=== PATIENT | female | born 1955 | race Caucasian/White ===

== ENCOUNTER → 2017-12-29 | Outpatient (CLI) | payer OTHER ==
[~2017-12-29] MED LIST: CONESTTC PV; HYDACE5 PO; Lisinopril2.5 MG PO; OXYACE5T; Valium5 MG PO
== END ==
LOC: PLD 13:52 → LAB SHORT 13:52
DX: D04.62 Carcinoma in situ of skin of left upper limb, including shoulder (principal); D17.23 Benign lipomatous neoplasm of skin and subcutaneous tissue of right leg
CPT/HCPCS: 88305

== ENCOUNTER → 2018-01-30 | Outpatient (CLI) | payer OTHER ==
[2018-01-30 22:03] LABS: Candida species (DNA Probe) Negative (NEGATIVE); G. vaginalis (DNA Probe) Positive (NEGATIVE); T. vaginalis (DNA Probe) Negative (NEGATIVE)
== END ==
LOC: LAB 10:34 → LAB SHORT 10:34
PROVIDERS: Nurse Practitioner
DX: R30.0 Dysuria (principal)
CPT/HCPCS: 87480; 87510; 87660

== ENCOUNTER → 2018-05-23 | Outpatient (CLI) | payer OTHER | END | disposition home or self-care (01) | LOC: LAB 17:52 → LAB SHORT 17:52 | DX: N76.0 Acute vaginitis (principal) | CPT/HCPCS: 87070; 87147; 87205 ==

== ENCOUNTER → 2019-10-09 | Outpatient (CLI) | payer OTHER | END | disposition home or self-care (01) | LOC: LAB SHORT 14:04 → LAB 14:04 | PROVIDERS: Hospitalist | DX: Z12.72 Encounter for screening for malignant neoplasm of vagina (principal); L29.8 Other pruritus | CPT/HCPCS: 87070; 87205; G0145 ==

== ENCOUNTER → 2019-11-01 | Outpatient (CLI) | payer OTHER | END | disposition home or self-care (01) | LOC: PLD 11:18 → LAB SHORT 11:18 | DX: D48.5 Neoplasm of uncertain behavior of skin (principal); C44.619 Basal cell carcinoma of skin of left upper limb, including shoulder; C44.519 Basal cell carcinoma of skin of other part of trunk | CPT/HCPCS: 88305 ==

== ENCOUNTER → 2020-02-05 | Outpatient (CLI) | payer OTHER | END | disposition home or self-care (01) | LOC: LAB SHORT 09:08 → PLD 09:08 | DX: C44.519 Basal cell carcinoma of skin of other part of trunk (principal) | CPT/HCPCS: 88305 ==

== ENCOUNTER → 2020-04-16 | Outpatient (CLI) | payer OTHER | END | disposition home or self-care (01) | LOC: LAB 12:07 → LAB SHORT 12:07 | DX: N95.2 Postmenopausal atrophic vaginitis (principal) | CPT/HCPCS: 87070; 87077; 87147; 87186; 87205 ==

== ENCOUNTER 2020-07-12 15:20 | Emergency (ER) | payer OTHER ==
[~2020-07-12] VITALS: Ht 160 cm; Wt 77.1 kg
[2020-07-12] MEDS ORDERED: METR500 (15:27)
[2020-07-12 15:45] LABS: BASOPHILS ABSOLUTE AUTO 0.04 K/mm3 (0.00-0.23); BASOPHILS PERCENT AUTO 1 % (0-2); EOSINOPHILS ABSOLUTE AUTO 0.18 K/mm3 (0.00-0.68); EOSINOPHILS PERCENT AUTO 3 % (0-6); Hematocrit 43.9 % (33.0-51.0); Hemoglobin 14.2 g/dL (11.5-16.0); IMMATURE GRAN ABSOLUTE AUTO 0.02 K/mm3 (0.00-0.10); IMMATURE GRAN PERCENT AUTO 0 % (0-1); LYMPHOCYTES ABSOLUTE AUTO 1.44 K/mm3 (0.84-5.20); LYMPHOCYTES PERCENT AUTO 23 % (21-46); MONOCYTES ABSOLUTE AUTO 0.52 K/mm3 (0.16-1.47); MONOCYTES PERCENT AUTO 8 % (4-13); Mean Corpuscular HGB 29.6 pg (26.0-34.0); Mean Corpuscular HGB Conc 32.3 g/dL (31.5-36.5); Mean Corpuscular Volume 92 fL (80-100); Mean Platelet Volume 9.8 fL (9.1-12.4); NEUTROPHILS PERCENT AUTO 65 % (41-73); Platelet Count 304 K/mm3 (150-400); RDW Coefficient Variation 12.1 % (11.7-14.2); RDW Standard Deviation 41.3 fL (35.1-46.3)
[2020-07-12 16:28] LABS: Alanine Aminotransfer (ALT/SGP 19 U/L (12-78); Albumin, Blood 3.5 g/dL (3.4-5.0); Albumin/Globulin Ratio 0.9 (0.8-1.8); Alk Phos 36 U/L (50-136); Anion Gap 9 mmol/L (6-16); Aspartate Aminotrans (AST/SGOT 18 U/L (12-37); Bilirubin, Total 0.4 mg/dL (0.1-1.0); Blood Urea Nitrogen 15 mg/dL (8-24); Bun/Creatinine Ratio 18.6 (12.0-20.0); CO2, Blood 27 mmol/L (21-32); Calcium, Blood 9.3 mg/dL (8.5-10.1); Chloride, Blood 97 mmol/L (98-108); Creatinine, Blood 0.81 mg/dL (0.40-1.00); Globulin, Blood 4.1 g/dL (2.2-4.0); Glomerular Filtration Rate >60 (60-); Glucose, Blood 169 mg/dL (70-99); Sodium, Blood 133 mmol/L (136-145); Total Protein, Blood 7.6 g/dL (6.4-8.2)
[2020-07-12] MEDS ORDERED: K-Dur 20 meq T20 MEQ PO (16:37)
[2020-07-12] MEDS ORDERED: COMPAZINE10 MG PO (16:37)
== END 2020-07-12 17:06 | disposition home or self-care (01) ==
LOC: ER 15:20
PROVIDERS: Emergency Medicine
DX: R19.7 Diarrhea, unspecified (principal); R11.2 Nausea with vomiting, unspecified; E87.6 Hypokalemia; T37.3X5A Adverse effect of other antiprotozoal drugs, initial encounter
CPT/HCPCS: 36415; 80053; 83690; 85025; 96361; 96374; 96375; 99284-25; J0780; J1200; J7120

== ENCOUNTER → 2021-08-18 | Outpatient (CLI) | payer OTHER ==
[~2021-08-18] MED LIST changes: +COMPAZINE10 MG PO; +ESTRADIOL42.5 GM VAG; +INDAPAMIDE; +K-Dur 20 meq T20 MEQ PO; +METR250 PO; +METR500; +MULVITA PO; +Miralax17 GM PO; +ONDA4ODT SL; +Percocet 5-3251 EACH PO
[2021-08-19 10:54] LABS: Candida species (DNA Probe) Negative (NEGATIVE); G. vaginalis (DNA Probe) Positive (NEGATIVE); T. vaginalis (DNA Probe) Negative (NEGATIVE)
== END ==
LOC: LAB SHORT 16:52
PROVIDERS: Family Medicine
DX: N95.2 Postmenopausal atrophic vaginitis (principal); Z88.8 Allergy status to other drugs, medicaments and biological substances
CPT/HCPCS: 87480; 87510; 87660

== ENCOUNTER → 2021-12-01 | Outpatient (CLI) | payer OTHER ==
[2021-12-02 10:53] LABS: Candida species (DNA Probe) Negative (NEGATIVE); G. vaginalis (DNA Probe) Positive (NEGATIVE); T. vaginalis (DNA Probe) Negative (NEGATIVE)
== END | disposition home or self-care (01) ==
LOC: LAB 09:27 → LAB SHORT 09:27
PROVIDERS: Obstetrics & Gynecology
DX: L29.2 Pruritus vulvae (principal)
CPT/HCPCS: 87480; 87510; 87660

== ENCOUNTER → 2022-01-13 | Outpatient (CLI) | payer OTHER | END | disposition home or self-care (01) | LOC: LAB 09:38 → LAB SHORT 09:38 | DX: N76.1 Subacute and chronic vaginitis (principal) | CPT/HCPCS: 87070; 87077; 87186; 87205 ==

== ENCOUNTER → 2022-06-08 | Outpatient (CLI) | payer OTHER ==
[2022-06-09 09:23] LABS: Candida species (DNA Probe) Negative (NEGATIVE); G. vaginalis (DNA Probe) Negative (NEGATIVE); T. vaginalis (DNA Probe) Negative (NEGATIVE)
== END ==
LOC: LAB SHORT 14:27
PROVIDERS: Obstetrics & Gynecology
DX: N76.0 Acute vaginitis (principal)
CPT/HCPCS: 87480; 87510; 87660

== ENCOUNTER → 2022-10-20 | Outpatient (CLI) | payer OTHER | END | disposition home or self-care (01) | LOC: LAB SHORT 09:49 → LAB 09:49 → PLD 09:49 | DX: L57.0 Actinic keratosis (principal) | CPT/HCPCS: 88305 ==

== ENCOUNTER → 2023-01-31 | Outpatient (CLI) | payer OTHER ==
[2023-01-31 12:47] LABS: Source, Urine Clean Catch
[2023-01-31 12:55] LABS: Appearance, Urine Clear (Clear); Bilirubin, Urine Neg (Neg); Blood, Urine Neg (Neg); Color, Urine Yellow (P-Yellow); Glucose Qualitative, Urine Neg (Neg); Ketones, Urine Neg (Neg); Leukocyte Esterase, Urine Neg (Neg); Nitrite, Urine Neg (Neg); Protein, Urine 1+ (Neg); Urobilinogen, Urine NORM (Normal); pH, Urine 6.5 (5.0-8.0)
[2023-01-31 14:40] LABS: Candida species (DNA Probe) Negative (NEGATIVE); G. vaginalis (DNA Probe) Negative (NEGATIVE); T. vaginalis (DNA Probe) Negative (NEGATIVE)
== END | disposition home or self-care (01) ==
LOC: LAB SHORT 10:58 → LAB 10:58
PROVIDERS: Obstetrics & Gynecology
DX: N76.0 Acute vaginitis (principal); R35.0 Frequency of micturition
CPT/HCPCS: 87480; 87510; 87660

== ENCOUNTER → 2025-03-25 | Outpatient (CLI) | payer OTHER ==
[2025-03-25 16:01] LABS: BASOPHILS ABSOLUTE AUTO 0.03 K/mm3 (0.00-0.23); BASOPHILS PERCENT AUTO 0 % (0-2); EOSINOPHILS ABSOLUTE AUTO 0.09 K/mm3 (0.00-0.68); EOSINOPHILS PERCENT AUTO 1 % (0-6); Hematocrit 46.8 % (33.0-51.0); Hemoglobin 15.3 g/dL (11.5-16.0); IMMATURE GRAN ABSOLUTE AUTO 0.02 K/mm3 (0.00-0.10); IMMATURE GRAN PERCENT AUTO 0 % (0-1); LYMPHOCYTES ABSOLUTE AUTO 1.31 K/mm3 (0.84-5.20); LYMPHOCYTES PERCENT AUTO 17 % (21-46); MONOCYTES ABSOLUTE AUTO 0.49 K/mm3 (0.16-1.47); MONOCYTES PERCENT AUTO 6 % (4-13); Mean Corpuscular HGB Conc 32.7 g/dL (31.5-36.5); Mean Corpuscular Volume 95 fL (80-100); Mean Platelet Volume 10.2 fL (9.1-12.4); NEUTROPHILS ABSOLUTE AUTO 5.68 K/mm3 (1.96-9.15); NEUTROPHILS PERCENT AUTO 75 % (41-73); Platelet Count 364 K/mm3 (150-400); RDW Coefficient Variation 12.8 % (11.7-14.2); RDW Standard Deviation 44.9 fL (35.1-46.3); Red Blood Cell Count 4.93 M/mm3 (3.80-5.20); White Blood Cell Count 7.62 K/mm3 (4.00-11.30)
[2025-03-25 16:17] LABS: Albumin, Blood 4.1 g/dL (3.4-5.0); Albumin/Globulin Ratio 1.3 (0.8-1.8); Bilirubin, Total 0.7 mg/dL (0.1-1.0); Bun/Creatinine Ratio 16.6 (12.0-20.0); Calcium, Blood 9.3 mg/dL (8.5-10.1); Creatinine, Blood 0.78 mg/dL (0.40-1.00); Globulin, Blood 3.2 g/dL (2.2-4.0); Potassium, Blood 4.1 mmol/L (3.5-5.5); Thyroid Stimulating Hormone 1.28 uIU/mL (0.360-4.800); Total Protein, Blood 7.3 g/dL (6.4-8.2)
== END | disposition home or self-care (01) ==
LOC: LAB SHORT 13:46 → LAB 13:46
PROVIDERS: Hospitalist
DX: Z01.89 Encounter for other specified special examinations (principal); R53.83 Other fatigue
CPT/HCPCS: 80053; 84443; 85025

== ENCOUNTER → 2025-06-05 | Outpatient (CLI) | payer OTHER ==
[2025-06-05 15:20] LABS: Influenza A/2009-H1 Not Detected (NOT DETECT); SARS-Cov-2 (COVID-19), BioFire Not Detected (NOT DETECT)
== END ==
LOC: LAB 10:28 → LAB SHORT 10:28
PROVIDERS: Hospitalist
DX: J06.9 Acute upper respiratory infection, unspecified (principal)
CPT/HCPCS: 0202U

== ENCOUNTER 2025-09-12 08:19 | Day surgery (SDC) | payer OTHER ==
[~2025-09-12] VITALS: Ht 160 cm; Wt 71.1 kg
[2025-09-12] VITALS (11 sets, daily range): BP systolic 105–166; BP diastolic 65–95
[~2025-09-12 08:19] MED LIST changes: +CeFAZolin Sodium 2,000 MG in NS 100 ML IV SCH; +Chlorhexidine Mouth Care 15 ML UDC MT SCH; -INDAPAMIDE; +Indapamide2.5 MG PO; +Ropivacaine 0.5% HCl/Pf 123.125 MG,EPINEPHrine HCL 0.25 MG,Ketorolac Tromethamine 15 MG... INFIL SCH; +Tranexamic Acid 100 ML IV SCH
[2025-09-12] MEDS ORDERED: Albuterol 2.5 MG/3 ML VIAL INH PRN (08:40)
[2025-09-12] MEDS ORDERED: Dexamethasone Sod Phos 10 MG/ML 1ML VIAL ONE (08:40)
[2025-09-12] MEDS ORDERED: Ondansetron HCl 2 MG / ML 2ML Vial ONE (08:40)
[2025-09-12] MEDS ORDERED: FentaNYL Citrate 50 MCG/ML 2 ML Injection IV PRN ×2 (08:40→08:45)
[2025-09-12] MEDS ORDERED: Ondansetron HCl 2 MG / ML 2ML Vial IV PRN ×2 (08:45→12:15)
[2025-09-12] MEDS ORDERED: HYDROmorphone HCl/Pf 1MG SYR IV PRN ×2 (08:45→12:10)
--- NOTE | 2025-09-12 09:15 | NUR ---
AMBULATORY INTO [facility]. HISTORY AND ALLERGIES REVIEWED. PT DENIES PAIN. LUNGS CLEAR. NO NOTED SOB. VS WDL. NPO STATUS CONFIRMED. PT PHONE GIVEN TO HER SPOUSE DESTINEE-PT CLOTHING IN BELONGINGS BAG BELOW THE GURNEY.
[2025-09-12] MEDS ORDERED: Phenylephrine HCl 100 MCG/ML-NS 10MLSYR (1MG/10ML) ONE (11:10)
[2025-09-12] MEDS ORDERED: FLU VACC TS2025(65UP)/MF59C/PF 45 MCG/0.5 ML SYRINGE IM SCH (12:10)
[2025-09-12] MEDS ORDERED: Metoclopramide HCl 5MG / ML 2ML Vial IV PRN (12:15)
[2025-09-12] MEDS ORDERED: Magnesium Hydroxide Conc 10 ML UDC PO PRN (12:15)
[2025-09-12] MEDS ORDERED: Tranexamic Acid 100 ML IV ONE (13:00)
--- NOTE | 2025-09-12 17:30 | NUR ---
SHIFT SUMMARY PATIENT IS AOX4, POD0 FOR L TKA.DRESSING IS TELFA AND TEGADERM WITH BURT WRAP C/D/I. TOLERATING PO INTAKE AND PAIN MEDICATIONS. UP TO CHAIR WITH 1 ASSIST GB, AND FWW. ICE MACHINE TO KNEE, PATIENT WAS STRAIGHT CATHED THIS AFTERNOON WITH OVER 1L OUT. AWAITING SPONTANEOUS VOID. SPINAL BLOCK HAS WORN OFF AND PATIENT IS ABLE TO MAKE NEEDS KNOWN.
[2025-09-12] MEDS ORDERED: CeFAZolin Sodium 2,000 MG in NS 100 ML IV SCH (18:00)
[2025-09-12] MEDS ORDERED: Ketorolac Tromethamine 15mg Vial IV SCH (18:00)
[2025-09-13 05:43] LABS: BASOPHILS ABSOLUTE AUTO 0.02 K/mm3 (0.00-0.23); BASOPHILS PERCENT AUTO 0 % (0-2); EOSINOPHILS ABSOLUTE AUTO 0.01 K/mm3 (0.00-0.68); EOSINOPHILS PERCENT AUTO 0 % (0-6); Hematocrit 34.5 % (33.0-51.0); Hemoglobin 11.5 g/dL (11.5-16.0); IMMATURE GRAN ABSOLUTE AUTO 0.06 K/mm3 (0.00-0.10); IMMATURE GRAN PERCENT AUTO 0 % (0-1); LYMPHOCYTES ABSOLUTE AUTO 1.07 K/mm3 (0.84-5.20); LYMPHOCYTES PERCENT AUTO 8 % (21-46); MONOCYTES ABSOLUTE AUTO 0.65 K/mm3 (0.16-1.47); MONOCYTES PERCENT AUTO 5 % (4-13); Mean Corpuscular HGB Conc 33.3 g/dL (31.5-36.5); Mean Corpuscular Volume 93 fL (80-100); NEUTROPHILS ABSOLUTE AUTO 12.43 K/mm3 (1.96-9.15); NEUTROPHILS PERCENT AUTO 87 % (41-73); NRBC ABSOLUTE 0.00 K/mm3 (0.00-0.02); NRBC Auto 0.0 /100 WBC (0.0-0.2); Platelet Count 258 K/mm3 (150-400); RDW Coefficient Variation 13.4 % (11.7-14.2); RDW Standard Deviation 46.0 fL (35.1-46.3)
[2025-09-13 06:11] VITALS: BP 120/72
[2025-09-13 06:17] LABS: Anion Gap 9.0 mmol/L (3-11); Blood Urea Nitrogen 17.0 mg/dL (8-24); CO2, Blood 25.0 mmol/L (21-32); Calcium, Blood 8.7 mg/dL (8.5-10.1); Chloride, Blood 106.0 mmol/L (98-108); Creatinine, Blood 0.67 mg/dL (0.40-1.00); Glucose, Blood 163.0 mg/dL (70-99); Magnesium, Blood 2.2 mg/dL (1.6-2.4); Potassium, Blood 3.6 mmol/L (3.5-5.5); Sodium, Blood 136.0 mmol/L (136-145)
--- NOTE | 2025-09-13 06:52 | NUR ---
SHIFT SUMMARY NO ACUTE CHANGES TO REPORT OVENRIGHT. PT S/P LEFT TOTAL KNEE, PT HAS BEEN UP AND AMBULATING AND IS VOIDING. TOLERATING PO INTAKE. POST OP VITALS ARE STABLE. SURGICAL SITE WNL. PLAN OF CARE REMAINS UNCHANGED. BED IN LOWEST POSITION, CALL LIGHT WITHIN REACH.
[2025-09-13 08:00] VITALS: BP 118/68
[2025-09-13] MEDS ORDERED: ASPI81CH PO (08:02)
--- NOTE | 2025-09-13 09:57 | NUR ---
DC'D @0990 ASSUMED CARE OF PT @0700. AXO4. VSS. L KNEE DRESSING CDI. VOIDING. TOLERATED PO INTAKE WELL. WORKED WITH PHYSICAL THERAPY ALEXIS. DEEMED OK TO DC. DC INSTRUCTIONS PROVIDED TO PT AND SPOUSE. PT WITH BELONGINGS. IV PULLED OUT. PT DC'D AND WHEELED OUT OF ROOM @0950.
== END 2025-09-13 09:54 | disposition home or self-care (01) ==
LOC: ORSCMMR 08:19 → ORD 09:30 → ORSCMMR 10:00 → SURS 12:06 → ORSCMMR 09-13 09:54
PROVIDERS: Orthopaedic Surgery
PROC: 0SRD0JA Replacement of Left Knee Joint with Synthetic Substitute, Uncemented, Open Approach (ICD-10-PCS; principal; 2025-09-12 10:00)
DX: M17.12 Unilateral primary osteoarthritis, left knee (principal); I10 Essential (primary) hypertension; Z79.899 Other long term (current) drug therapy
CPT/HCPCS: 36415; 73560-LT; 80048; 83735; 85025; 97110; 97116; 97161; A9270; C1713; C1776; J0166; J0690; J0735; J1100; J1885; J2371; J2405; J2704; J2795; J7120